=== PATIENT | female | born 1940 | race Two or more races ===

== ENCOUNTER 2024-12-14 05:45 | Day surgery (SDC) | payer OTHER ==
[2024-12-07 13:10] VITALS: BP 126/74
[~2024-12-14] VITALS: Ht 152.4 cm; Wt 55.3 kg
[~2024-12-14 05:45] MED LIST: ACID CONTROLLER20 MG PO; ALENDRONATE SOD70 MG PO; AMLODIPINE-OLM1 EAC2 PO; COZAAR100 MG PO; ECOTRIN81 MG PO; FARXIGA10 MG PO; GLIMEPIRIDE1 M1 PO; HORIZANT300 MG PO; JENTADUETO XR1 EAC1 PO; ROSUVASTATIN CA20 MG PO; SINGULAIR10 MG PO; SYNTHROID88 MCG PO; TIZANIDINE HCL4 M1 PO
[2024-12-14] MEDS ORDERED: LIDOCAINE HCL 1%/EPINEPHRINE 20ML VIAL IJ ONE (09:00)
[2024-12-14] MEDS ORDERED: BUPIVACAINE HCL 30 ML VIAL IJ ONE (09:00)
[2024-12-14] MEDS ORDERED: CEFAZOLIN SODIUM 1,000 MG VIAL IV ONE (09:00)
[2024-12-14] MEDS ORDERED: CEPHALEXIN500 MG PO (13:10)
[2024-12-14] MEDS ORDERED: TRAM1TAB98 PO (13:11)
== END 2024-12-14 14:35 | disposition home or self-care (01) ==
LOC: CIR.AMB 05:45
PROVIDERS: ATTEND Surgery
DX: R15.9 Full incontinence of feces (principal); K57.30 Diverticulosis of large intestine without perforation or abscess without bleeding; N39.46 Mixed incontinence; N81.6 Rectocele
CPT/HCPCS: 64561; C1778

== ENCOUNTER 2024-12-28 06:00 | Day surgery (SDC) | payer OTHER ==
[~2024-12-28 06:00] MED LIST changes: +CEPHALEXIN500 MG PO; +TRAM1TAB98 PO
[2024-12-28] MEDS ORDERED: BUPIVACAINE HCL/MPF 0.5% 30ML VIAL ONE (07:05)
[2024-12-28] MEDS ORDERED: POVIDONE-IODINE 118 ML BOTT TOP ONE (07:05)
[2024-12-28] MEDS ORDERED: LIDOCAINE HCL 1%/EPINEPHRINE 20ML VIAL IJ ONE (07:05)
[2024-12-28] MEDS ORDERED: CEFAZOLIN SODIUM 1,000 MG VIAL ONE (07:06)
[2024-12-28] MEDS ORDERED: TRAM1TAB98 PO (09:40)
== END 2024-12-28 11:00 | disposition home or self-care (01) ==
LOC: CIR.AMB 06:00
PROVIDERS: ATTEND Surgery
DX: R15.9 Full incontinence of feces (principal); K57.30 Diverticulosis of large intestine without perforation or abscess without bleeding; N39.46 Mixed incontinence
CPT/HCPCS: 64590; 95972; C1767